=== PATIENT | female | born 1960 | race Caucasian/White ===

== ENCOUNTER 2016-12-08 18:43 | Emergency (ER) | payer BC ==
[2016-12-08 20:18] VITALS: BP 147/84
[2016-12-08] MEDS ORDERED: Sulfamethox/Trimethoprim DS 800/160* TAB PO ONE (21:03)
[2016-12-08] MEDS ORDERED: Phenazopyridine TAB* 100 MG PO ONE (21:03)
--- NOTE | 2016-12-08 21:18 | UC ---
Complaint Female HPI - HPI Summary HPI Summary: ONE DAY OF URINARY FREQUENCY, URGENCEY. NO FEVER. NO BACK PAIN. NO ABDOMINAL PAIN. HAD UTERINE BIOPSY TWO DAYS AGO. - History Of Current Complaint Chief Complaint: UCGU Stated Complaint: URINARY Time Seen by Provider: 12/08/16 20:26 Hx Obtained From: Patient ?: No Onset/Duration: Sudden Onset, Lasting Hours, Worse Since - PROGRESSIVE Timing: Intermittent Severity Initially: Mild Severity Currently: Mild Pain Intensity: 1 Pain Scale Used: 0-10 Numeric Character: Dull, Burning Aggravating Factor(s): Urination Associated Signs And Symptoms: Negative: Fever, Back Pain - Risk Factors Ectopic Risk Factor: Negative Ovarian Torsion Risk Factor: Negative - Allergies/Home Medications Allergies/Adverse Reactions: Allergies Allergy/AdvReac Type Severity Reaction Status Date / Time No Known Allergies Allergy Verified 12/08/16 20:18 PMH/Surg Hx/FS Hx/Imm Hx Previously Healthy: Yes - Surgical History Surgical History: Yes Surgery Procedure, Year, and Place: bunionectomy. vein stripping - Family History Known Family History: Positive: None Negative: Renal Disease - Social History Occupation: Employed Full-time Lives: With Family Alcohol Use: Occasionally Substance Use Type: None Smoking Status (MU): Never Smoked Tobacco Review of Systems Constitutional: Negative Skin: Negative Eyes: Negative ENT: Negative Respiratory: Negative Cardiovascular: Negative Gastrointestinal: Negative Genitourinary: Dysuria, Frequency, Urgency Motor: Negative Neurovascular: Negative Musculoskeletal: Negative Neurological: Negative Psychological: Negative All Other Systems Reviewed And Are Negative: Yes Physical Exam Triage Information Reviewed: Yes Appearance: Well-Appearing, No Pain Distress, Well-Nourished Vital Signs: Initial Vital Signs Temp 98.9 F 12/08/16 20:14 Pulse 72 12/08/16 20:14 Resp 16 12/08/16 20:14 BP 147/84 12/08/16 20:14 Pulse Ox 100 12/08/16 20:14 Vital Signs Reviewed: Yes Eye Exam: Normal Eyes: Positive: Conjunctiva Clear ENT Exam: Normal ENT: Positive: Normal ENT inspection, Hearing grossly normal, TMs normal Dental Exam: Normal Neck exam: Normal Neck: Positive: Supple, Nontender, No Lymphadenopathy Respiratory Exam: Normal Respiratory: Positive: Chest non-tender, Lungs clear, Normal breath sounds, No respiratory distress Cardiovascular Exam: Normal Cardiovascular: Positive: RRR, No Murmur, Pulses Normal Abdominal Exam: Normal Abdomen Description: Positive: Nontender, No Organomegaly, Soft. Negative: CVA Tenderness (R), CVA Tenderness (L) Musculoskeletal Exam: Normal Neurological Exam: Normal Psychological Exam: Normal Psychological: Positive: Normal Response To Family Skin Exam: Normal Complaint Female Dx - Differential Dx/Diagnosis Differential Diagnosis/HQI/PQRI: Cervicitis, Urinary Tract Infection Provider Diagnoses: URINARY TRACT INFECTION Discharge - Discharge Plan Condition: Stable Disposition: HOME Prescriptions: Phenazopyridine TAB* [Pyridium 100 mg TAB*] 100 mg PO TID #15 tab Sulfamethox/Trimethoprim DS* [Bactrim DS 800/160 TAB*] 1 tab PO BID #10 tab Patient Education Materials: Urinary Tract Infection in Women (ED) Referrals: Renetta Blake MD [Primary Care Provider] -
== END 2016-12-08 21:15 | disposition home or self-care (01) ==
LOC: UCCORT 18:43
DX: N39.0 Urinary tract infection, site not specified (principal)
CPT/HCPCS: 81003; 87086; 99212; A9270-GY; G0463

== ENCOUNTER 2017-04-30 07:01 | Emergency (ER) | payer BC ==
[2017-04-30 07:12] VITALS: BP 133/78
--- NOTE | 2017-04-30 07:18 | UC ---
Skin Complaint HPI - HPI Summary HPI Summary: 56 YEAR OLD FEMALE PRESENTS WITH COMPLAINS OF RIGHT GLUTEAL ABSCESS. - History of Current Complaint Chief Complaint: UCSkin Time Seen by Provider: 04/30/17 07:13 Stated Complaint: ABSCESS Hx Obtained From: Patient Onset/Duration: Sudden Onset Skin Exposure Onset/Duration: Hours Ago Timing: Constant Onset Severity: Moderate Current Severity: Moderate Location: Discrete - RIGHT GLUTEAL - Allergy/Home Medications Allergies/Adverse Reactions: Allergies Allergy/AdvReac Type Severity Reaction Status Date / Time No Known Allergies Allergy Verified 04/30/17 07:07 Home Medications: Home Medications Ibuprofen TAB* [Advil TAB*] 200 mg PO Q6H PRN 04/30/17 [History Confirmed ] Review of Systems Constitutional: Negative Skin: Other - RIGHT GLUTEAL ABSCESS Eyes: Negative ENT: Negative Respiratory: Negative Cardiovascular: Negative Gastrointestinal: Negative Genitourinary: Negative Motor: Negative Neurovascular: Negative Musculoskeletal: Negative Neurological: Negative Psychological: Negative All Other Systems Reviewed And Are Negative: Yes PMH/Surg Hx/FS Hx/Imm Hx Previously Healthy: Yes - Surgical History Surgical History: Yes Surgery Procedure, Year, and Place: Colonoscopy, 01/2017, [place]; Hysteroscopy , 12/2016, [place]; Left bunionectomy, ~2010, [place]; Vein Stripping, ~2013, [facility] [place] - Family History Known Family History: Positive: None Negative: Renal Disease - Social History Alcohol Use: Occasionally Substance Use Type: None Smoking Status (MU): Current Some Day Smoker - Immunization History Most Recent Influenza Vaccination: Not the Season Physical Exam Triage Information Reviewed: Yes Vital Signs: Initial Vital Signs Temp 36.8 C 04/30/17 07:05 Pulse 102 04/30/17 07:05 Resp 16 04/30/17 07:05 BP 133/78 04/30/17 07:05 Pulse Ox 99 04/30/17 07:05 Eye Exam: Normal ENT Exam: Normal Dental Exam: Normal Neck exam: Normal Neck: Positive: 1 Respiratory Exam: Normal Cardiovascular Exam: Normal Abdominal Exam: Normal Musculoskeletal Exam: Normal Neurological Exam: Normal Psychological Exam: Normal Skin: Positive: Other - RIGHT GLUTEAL ABSCESS Course/Dx - Course Course Of Treatment: I/D OF RIGHT GLUTEAL ABSCESS . # 11 BLADE. LINEAR INCISION . PACKED WITH IODOFORM. STERILE DRESSING. F/U 48 HRS FOR PACKING CHANGE. - Differential Diagnoses - Skin Complaint Differential Diagnoses: Abscess - Diagnoses Provider Diagnoses: RIGHT GLUTEAL ABSCESS Discharge - Discharge Plan Condition: Stable Disposition: HOME Prescriptions: Sulfamethox/Trimethoprim DS* [Bactrim DS 800/160 TAB*] 1 tab PO BID #14 tab Patient Education Materials: Abscess (ED), Rectal Abscess (ED) Referrals: Karla Hankins MD [Primary Care Provider] -
[2017-04-30] MEDS ORDERED: Lidocaine 1% MPF* 2 ML VIAL INJ ONE (07:19)
[2017-04-30] MEDS ORDERED: Lidocaine 1% MPF* 2 ML VIAL ONE (07:19)
== END 2017-04-30 08:32 | disposition home or self-care (01) ==
LOC: UCCORT 07:01
DX: L02.31 Cutaneous abscess of buttock (principal); F17.210 Nicotine dependence, cigarettes, uncomplicated
CPT/HCPCS: 10060; 87070; 87077; 87186; 87205; 87640; 87641; 99212; G0463

== ENCOUNTER 2017-05-02 17:51 | Emergency (ER) | payer BC ==
[2017-05-02 18:41] VITALS: BP 110/78
--- NOTE | 2017-05-02 19:17 | UC ---
Skin Complaint HPI - HPI Summary HPI Summary: This is a 56 yo female who was seen 2d ago and underwent I&D of abscess on R buttock. The area was packed and she was prescribed Bactrim. Her has been doing daily dressing changes and taking abx as directed. She reports improved pain and no fever. She was told to return to have packing removed. Wound cx grew MRSA and is sensitive to Bactrim. - History of Current Complaint Chief Complaint: UCSkin Stated Complaint: WOUND RECHECK - Allergy/Home Medications Allergies/Adverse Reactions: Allergies Allergy/AdvReac Type Severity Reaction Status Date / Time No Known Allergies Allergy Verified 05/02/17 18:41 Review of Systems Constitutional: Negative Skin: Other - abscess Eyes: Negative ENT: Negative Respiratory: Negative Cardiovascular: Negative Gastrointestinal: Negative Genitourinary: Negative Motor: Negative Neurovascular: Negative Musculoskeletal: Negative Neurological: Negative Psychological: Negative All Other Systems Reviewed And Are Negative: Yes PMH/Surg Hx/FS Hx/Imm Hx Previously Healthy: Yes - Surgical History Surgical History: Yes Surgery Procedure, Year, and Place: Colonoscopy, 01/2017, [place]; Hysteroscopy , 12/2016, [place]; [place]ectomy, ~2010, [place]; [place] [facility] [facility] [place] - Family History Known Family History: Positive: None Negative: Renal Disease - Social History Alcohol Use: Occasionally Substance Use Type: None Smoking Status (MU): Current Some Day Smoker - Immunization History Most Recent Influenza Vaccination: Not the Season Physical Exam Triage Information Reviewed: Yes Appearance: Well-Appearing Vital Signs: Initial Vital Signs Temp 99.3 F 05/02/17 18:35 Pulse 78 05/02/17 18:35 Resp 16 05/02/17 18:35 BP 110/78 05/02/17 18:35 Pulse Ox 100 05/02/17 18:35 Vital Signs Reviewed: Yes ENT Exam: Normal ENT: Positive: Hearing grossly normal Neck exam: Normal Neck: Positive: Nontender Respiratory Exam: Normal Respiratory: Positive: Lungs clear. Negative: Crackles, Rhonchi, Wheezing Cardiovascular Exam: Normal Cardiovascular: Positive: RRR, No Murmur Abdominal Exam: Normal Abdomen Description: Positive: Nontender, Soft Musculoskeletal Exam: Normal Musculoskeletal: Positive: Strength Intact Neurological: Positive: Alert Psychological Exam: Normal Psychological: Positive: Normal Response To Family Skin: Positive: Other - dressing removed from R buttock, packing removed. Open area ~1cm in diameter, ~5mm deep, mild purulent drainage. Some hyperpigmentation , but no surrounding erythema Course/Dx - Course Course Of Treatment: This is a 56 yo female who presents for f/u on R buttock abscess. Packing removed, erythema appears improved. No indication to re- pack. Reviewed wound C&S results, recommend continuing Bactrim. - Differential Diagnoses - Skin Complaint Differential Diagnoses: Abscess, Cellulitis - Diagnoses Provider Diagnoses: 1. Resolving abscess. 2. MRSA infection Discharge - Discharge Plan Condition: Stable Disposition: HOME Patient Education Materials: MRSA (Methicillin-Resistant Staphylococcus Aureus ) (ED), Abscess (ED) Referrals: Karla Hankins MD [Primary Care Provider] - If Needed Additional Instructions: Activity: As tolerated Instructions: 1. Change bandage daily, apply antibiotic ointment and clean dressing 2. Finish Bactrim as previously prescribed
== END 2017-05-02 19:16 | disposition home or self-care (01) ==
LOC: UCCORT 17:51
DX: L02.31 Cutaneous abscess of buttock (principal); B95.7 Other staphylococcus as the cause of diseases classified elsewhere; F17.210 Nicotine dependence, cigarettes, uncomplicated
CPT/HCPCS: 99211; G0463